=== PATIENT | male | born 1950 | race Caucasian/White ===

== ENCOUNTER 2022-06-19 10:49 | Inpatient (IN) | payer OTHER ==
[~2022-06-19] VITALS: Ht 182.9 cm; Wt 92.1 kg
[2022-06-19] MEDS ORDERED: SODIUM CHLORIDE 0.9% 1,000 ML IV ONE (11:45)
[2022-06-19 12:42] LABS: Urine Bacteria NONE SEEN /hpf (None Seen); Urine Blood 3+ /uL (Negative); Urine Hyaline Cast MANY /lpf (0 - 2); Urine Mucus FEW (None Seen); Urine WBC 768 /hpf (0 - 3)
[2022-06-19 13:00] LABS: Basophils # (auto) 0.1 10 ^3/uL (0-0.2); Hemoglobin 12.9 g/dL (13.5-17.5); Neutrophils # (auto) 2.9 10 ^3/uL (1.6-8.6)
[2022-06-19 13:03] LABS: Basophils % (auto) 1.1 % (0.0-2.0); Eosinophils # (auto) 0.2 10 ^3/uL (0-0.8); Eosinophils % (auto) 2.9 % (0.0-7.0); Hematocrit 40.5 % (41.0-53.0); Lymphocytes # (auto) 2.5 10 ^3/uL (0.4-5.4); Lymphocytes % (auto) 41.4 % (10.0-50.0); Mean Corpuscular Hemoglobin 24.2 pg (28.0-32.0); Mean Corpuscular Hgb Conc. 31.8 g/dL (32.0-36.0); Mean Corpuscular Volume 76.2 fL (80.0-100.0); Monocytes # (auto) 0.4 10 ^3/uL (0-1.3); Monocytes % (auto) 7.1 % (0.0-12.0); Neutrophils % (auto) 47.5 % (37.0-80.0); Nucleated Red Blood Cells % 0.2 %; Red Blood Cells 5.32 10^6/uL (4.5-5.90); Red Cell Distribution Width 21.7 % (11.8-14.3)
[2022-06-19 13:18] LABS: Albumin 2.5 g/dL (3.4-5.0); BUN/Creatinine Ratio 20.2; Calcium 7.8 mg/dL (8.5-10.1); Potassium 4.2 mmol/L (3.5-5.1)
[2022-06-19 13:21] LABS: Bilirubin, Total 0.4 mg/dL (0.2-1.0); Total Protein 7.4 g/dL (6.4-8.2)
[2022-06-19] MEDS: cefTRIAXone 1GM/50ML D5W 50 ML IV ONE ×2 (13:55→14:08)
[2022-06-19] MEDS: SODIUM CHLORIDE 0.9% 1,000 ML IV SCH (16:57)
[2022-06-20 05:27] LABS: Hemoglobin 12.1 g/dL (13.5-17.5); Monocytes # (auto) 0.4 10 ^3/uL (0-1.3); Nucleated Red Blood Cells % 0.1 %; White Blood Cell 4.9 10^3/uL (4.4-10.8)
[2022-06-20 05:30] LABS: Basophils # (auto) 0.1 10 ^3/uL (0-0.2); Basophils % (auto) 2.1 % (0.0-2.0); Eosinophils # (auto) 0.2 10 ^3/uL (0-0.8); Eosinophils % (auto) 3.6 % (0.0-7.0); Lymphocytes # (auto) 2.4 10 ^3/uL (0.4-5.4); Lymphocytes % (auto) 48.5 % (10.0-50.0); Mean Corpuscular Hemoglobin 24.8 pg (28.0-32.0); Mean Corpuscular Hgb Conc. 32.6 g/dL (32.0-36.0); Monocytes % (auto) 7.6 % (0.0-12.0); Neutrophils # (auto) 1.9 10 ^3/uL (1.6-8.6); Neutrophils % (auto) 38.2 % (37.0-80.0); Red Blood Cells 4.87 10^6/uL (4.5-5.90)
[2022-06-20 05:37] LABS: Red Cell Distribution Width 21.9 % (11.8-14.3)
[2022-06-20 05:48] LABS: Albumin 2.3 g/dL (3.4-5.0); BUN/Creatinine Ratio 21.5; Calcium 8.1 mg/dL (8.5-10.1); Potassium 3.5 mmol/L (3.5-5.1)
[2022-06-20 05:51] LABS: Bilirubin, Total 0.3 mg/dL (0.2-1.0)
[2022-06-20 09:10] VITALS: BP 150/80
[2022-06-20] MEDS: ENOXAPARIN SOD 40 MG/0.4 ML SYRINGE SC SCH (09:49)
[2022-06-20] MEDS: cefTRIAXone 1GM/50ML D5W 50 ML IV SCH ×2 (09:50→11:25)
[2022-06-20 10:48] VITALS: BP 150/80
[2022-06-20] MEDS: SODIUM CHLORIDE 0.9% 1,000 ML IV SCH (11:24)
[2022-06-20 13:00] VITALS: BP 149/78
[2022-06-20 17:00] VITALS: BP 165/87
[2022-06-20] MEDS ORDERED: HYDROcodone-ACET 5/325MG TAB PO ONE (19:00)
[2022-06-20] MEDS ORDERED: VANCOMYCIN PER PHARMACY 0 MG IV SCH (19:30)
[2022-06-20 21:39] VITALS: BP 137/91
[2022-06-20] MEDS: VANCOMYCIN 1GM/250ML 250 ML IV SCH (21:41)
[2022-06-21] MEDS: SODIUM CHLORIDE 0.9% 1,000 ML IV SCH ×2 (01:50→18:43)
[2022-06-21 04:56] VITALS: BP 140/88
[2022-06-21 06:21] LABS: Albumin 2.3 g/dL (3.4-5.0); Calcium 8.1 mg/dL (8.5-10.1); Phosphorus 2.7 mg/dL (2.5-4.90); Potassium 3.6 mmol/L (3.5-5.1)
[2022-06-21] MEDS: VANCOMYCIN 1GM/250ML 250 ML IV SCH ×2 (06:25→17:04)
[2022-06-21 09:00] VITALS: BP 140/92
[2022-06-21] MEDS: ENOXAPARIN SOD 40 MG/0.4 ML SYRINGE SC SCH (09:51)
[2022-06-21] MEDS: cefTRIAXone 1GM/50ML D5W 50 ML IV SCH (09:51)
[2022-06-21 12:25] VITALS: BP 167/122
[2022-06-21] MEDS: HYDROcodone-ACET 7.5/325MG TAB PO PRN (15:01)
[2022-06-21] MEDS: hydrALAZINE HCL 20 MG/ML VL IV PRN (15:01)
[2022-06-21 16:54] VITALS: BP 166/83
[2022-06-21 21:52] VITALS: BP 150/98
[2022-06-22] MEDS: HYDROcodone-ACET 7.5/325MG TAB PO PRN (00:47)
[2022-06-22] MEDS: VANCOMYCIN 1GM/250ML 250 ML IV SCH (02:00)
[2022-06-22 05:01] VITALS: BP 159/87
[2022-06-22] MEDS ORDERED: ATOR40TA52 PO (05:55)
[2022-06-22] MEDS ORDERED: TAMS0.4C36 PO (05:55)
[2022-06-22] MEDS ORDERED: APIX5TAB PO (05:55)
[2022-06-22] MEDS ORDERED: TRAM50TA2 PO (05:55)
[2022-06-22] MEDS ORDERED: BENA10TA15 PO (05:55)
[2022-06-22] MEDS ORDERED: MET25T PO (05:55)
[2022-06-22] MEDS ORDERED: FIN5T PO (05:55)
[2022-06-22] MEDS ORDERED: TIZA-206 PO (05:55)
[2022-06-22] MEDS ORDERED: AMLO-496 PO (05:55)
[2022-06-22] MEDS ORDERED: DIPH-599 PO (06:05)
[2022-06-22] MEDS ORDERED: GABA100C9 PO (06:06)
[2022-06-22] MEDS ORDERED: TEMA30CA PO (06:16)
[2022-06-22] MEDS ORDERED: ACET-1156 PO (06:16)
[2022-06-22] MEDS ORDERED: METH5TAB2 PO (07:30)
[2022-06-22 09:00] VITALS: BP 145/90
[2022-06-22] MEDS: cefTRIAXone 1GM/50ML D5W 50 ML IV SCH (09:39)
[2022-06-22] MEDS: ENOXAPARIN SOD 40 MG/0.4 ML SYRINGE SC SCH (09:39)
[2022-06-22] MEDS: SODIUM CHLORIDE 0.9% 1,000 ML IV SCH (11:10)
[2022-06-22 13:00] VITALS: BP 158/99
[2022-06-22] MEDS ORDERED: VANCOMYCIN 1GM/250ML 250 ML IV ONE (13:00)
[2022-06-22] MEDS: hydrALAZINE HCL 20 MG/ML VL IV PRN (17:31)
[2022-06-22 20:00] VITALS: BP 147/93
[2022-06-22 22:00] VITALS: BP 147/95
[2022-06-22] MEDS: APIXABAN 5 MG TAB PO SCH (22:02)
[2022-06-22] MEDS: METHADONE HCL 10 MG TAB PO SCH (22:03)
[2022-06-23] MEDS: SODIUM CHLORIDE 0.9% 1,000 ML IV SCH ×2 (03:00→23:40)
[2022-06-23 05:00] VITALS: BP 159/108
[2022-06-23] MEDS: VANCOMYCIN 1GM/250ML 250 ML IV SCH (05:48)
[2022-06-23] MEDS: METHADONE HCL 10 MG TAB PO SCH ×4 (05:49→23:41)
[2022-06-23 09:01] VITALS: BP 152/90
[2022-06-23] MEDS: cefTRIAXone 1GM/50ML D5W 50 ML IV SCH (10:06)
[2022-06-23] MEDS: APIXABAN 5 MG TAB PO SCH ×2 (10:07→21:45)
[2022-06-23 13:04] VITALS: BP 154/102
[2022-06-23 15:00] VITALS: BP 153/109
[2022-06-23] MEDS: hydrALAZINE HCL 20 MG/ML VL IV PRN (21:47)
[2022-06-23 22:00] VITALS: BP 186/86
[2022-06-24] MEDS: VANCOMYCIN 1GM/250ML 250 ML IV SCH ×2 (00:26→18:04)
[2022-06-24] MEDS: METHADONE HCL 10 MG TAB PO SCH ×3 (05:47→22:47)
[2022-06-24 05:58] VITALS: BP 155/95
[2022-06-24 09:00] VITALS: BP 124/102
[2022-06-24] MEDS: cefTRIAXone 1GM/50ML D5W 50 ML IV SCH (10:03)
[2022-06-24] MEDS: APIXABAN 5 MG TAB PO SCH ×2 (10:03→22:46)
[2022-06-24 13:00] VITALS: BP 149/85
[2022-06-24] MEDS: SODIUM CHLORIDE 0.9% 1,000 ML IV SCH ×2 (13:01→23:28)
[2022-06-24 17:00] VITALS: BP 165/100
[2022-06-24 22:00] VITALS: BP 159/100
[2022-06-24] MEDS: hydrALAZINE HCL 20 MG/ML VL IV PRN (23:30)
[2022-06-25 05:00] VITALS: BP 157/100
[2022-06-25] MEDS: METHADONE HCL 10 MG TAB PO SCH ×2 (06:10→13:58)
[2022-06-25 08:00] VITALS: BP 142/86
[2022-06-25 09:00] VITALS: BP 142/86
[2022-06-25] MEDS: APIXABAN 5 MG TAB PO SCH (09:31)
[2022-06-25] MEDS ORDERED: VANCOMYCIN 1GM/250ML 250 ML IV SCH (10:00)
[2022-06-25] MEDS: cefTRIAXone 1GM/50ML D5W 50 ML IV SCH (10:40)
[2022-06-25] MEDS: hydrALAZINE HCL 20 MG/ML VL IV PRN (12:38)
[2022-06-25 13:00] VITALS: BP 162/100
[2022-06-25 16:17] VITALS: BP 148/88
[2022-06-25 17:00] VITALS: BP 152/93
== END 2022-06-25 20:23 | disposition hospice, home (50) | DRG 871 ==
LOC: ER 10:49 → EDBD 10:49 → OVERFLOW 16:21 → WEST WING 06-20 08:04
PROVIDERS: ADMIT Internal Medicine; ATTEND Internal Medicine Pulmonary Disease
DX: A41.9 Sepsis, unspecified organism (principal); G93.41 Metabolic encephalopathy; N39.0 Urinary tract infection, site not specified; E44.0 Moderate protein-calorie malnutrition; E88.09 Other disorders of plasma-protein metabolism, not elsewhere classified; I10 Essential (primary) hypertension; Z74.01 Bed confinement status; Z20.822 Contact with and (suspected) exposure to COVID-19; Z68.27 Body mass index [BMI] 27.0-27.9, adult
CPT/HCPCS: 36415; 70450; 71045; 73502; 80053; 80069; 80202; 81001; 82565; 84484; 85025; 87040; 87077; 87086; 87186; 93005; 96365; 97110; 97163; 97530; G0378; J0696